=== PATIENT | male | born 1980 | race Caucasian/White ===

== ENCOUNTER 2018-08-25 05:06 | Inpatient (IN) | payer BC, OTHER ==
[2018-08-25] MEDS ORDERED: Ondansetron 4 MG/2 ML SDV IVPUSH ONE (05:55)
[2018-08-25] MEDS ORDERED: HYDROmorphone 0.5 MG/0.5 ML Syringe IVPUSH ONE (05:55)
[2018-08-25] MEDS ORDERED: Sodium Chloride 0.9% 1,000 ML IV SCH (06:00)
--- NOTE | 2018-08-25 06:01 | EDM.PDOC ---
<Bhupinder Vigil - Last Filed: 08/25/18 06:01> ED HPI GENERAL MEDICAL PROBLEM - General Chief Complaint: Gastrointestinal Problem Stated Complaint: VOMITING Time Seen by Provider: 08/25/18 05:50 Source of Information: Reports: Patient History Limitations: Reports: No Limitations - History of Present Illness INITIAL COMMENTS - FREE TEXT/NARRATIVE: 38-year-old male, usually healthy, was fine yesterday until after he ate supper. About 8 PM he developed nausea and vomited his supper. Since that time he has had significant lower abdominal pain and vomiting every 30 minutes. The last several hours it's been "dry heaves". His pain is cramping and significant , 9 out of 10. No radiation to the back. He has no history of abdominal surgeries. No medications. Onset: Sudden Duration: Hour(s): (10 hours) Location: Reports: Abdomen abd pain Pain Score (Numeric/FACES): 9 - Related Data Allergies Allergy/AdvReac Type Severity Reaction Status Date / Time acetaminophen Allergy Rash Verified 08/25/18 05:34 Home Meds: Home Meds NK [No Known Home Meds] 08/25/18 [History] Past Medical History - Past Health History Medical/Surgical History: Denies Medical/Surgical History Social & Family History - Family History Family Medical History: Noncontributory - Tobacco Use Smoking Status *Q: Never Smoker Second Hand Smoke Exposure: No - Caffeine Use Caffeine Use: Reports: Soda - Recreational Drug Use Recreational Drug Use: No ED ROS GENERAL - Review of Systems Review Of Systems: See Below Constitutional: Reports: Chills, Malaise. Denies: Fever HEENT: Reports: No Symptoms Respiratory: Denies: Shortness of Breath, Cough Cardiovascular: Denies: Chest Pain GI/Abdominal: Reports: Abdominal Pain, Nausea, Vomiting. Denies: Constipation, Diarrhea : Reports: No Symptoms Skin: Reports: Pallor, Diaphoresis Neurological: Denies: Headache Psychiatric: Reports: No Symptoms ED EXAM, GI/ABD - Physical Exam Exam: See Below Exam Limited By: No Limitations General Appearance: Alert, Mild Distress, Other (Appears very uncomfortable) Eyes: Bilateral: Normal Appearance Respiratory/Chest: No Respiratory Distress, Lungs Clear Cardiovascular: Regular Rate, Rhythm GI/Abdominal Exam: Abnormal Bowel Sounds (Bowel sounds are hypoactive), Other ( Abdomen is very difficult to examine as the whole abdomen is guarded) Neurological: Alert, Oriented Psychiatric: Flat Affect Course - Vital Signs Last Recorded V/S: Last Vital Signs Temp 97.6 F 08/25/18 05:35 Pulse 72 08/25/18 05:35 Resp 16 08/25/18 05:35 BP 120/73 08/25/18 05:35 Pulse Ox 99 08/25/18 05:35 - Orders/Labs/Meds Orders: Active Orders 24 hr Category Date Time Status Iopamidol [Isovue-300 (61%)] Med 08/25/18 07:27 Active 136 ml IV . DIRECTED PRN Sodium Chloride 0.9% [Normal Saline] 1,000 ml Med 08/25/18 06:00 Active IV ASDIRECTED Sodium Chloride 0.9% [Normal Saline] 85 ml Med 08/25/18 07:30 Active IV ASDIRECTED Sodium Chloride 0.9% [Saline Flush] Med 08/25/18 07:30 Active 10 ml FLUSH ONETIME Medication Orders Sodium Chloride (Normal Saline) 1,000 mls @ 1,000 mls/hr IV ASDIRECTED [facility] Last Admin: 08/25/18 06:11 Dose: 1,000 mls/hr Sodium Chloride (Normal Saline) 85 mls @ 3.5 mls/sec IV ASDIRECTED YONI Stop: 08/25/18 09:00 Last Admin: 08/25/18 07:40 Dose: 3.5 mls/sec Iopamidol (Isovue-300 (61%)) 136 ml IV . DIRECTED PRN PRN Reason: RADIOLOGY EXAM Stop: 08/25/18 09:00 Last Admin: 08/25/18 07:40 Dose: 136 ml Sodium Chloride (Saline Flush) 10 ml FLUSH ONETIME YONI Stop: 08/25/18 09:00 Last Admin: 08/25/18 07:40 Dose: 10 ml Labs: Laboratory Tests 08/25/18 08/25/18 Range/Units 06:12 06:12 WBC 10.8 (4.5-11.0) K/uL RBC 4.90 (4.30-5.90) M/uL Hgb 14.5 (12.0-15.0) g/dL Hct 43.3 (40.0-54.0) % MCV 88 (80-98) fL MCH 30 (27-31) pg MCHC 34 (32-36) % Plt Count 204 (150-400) K/uL Neut % (Auto) 91 H (36-66) % Lymph % (Auto) 5 L (24-44) % [place] % (Auto) 4 (2-6) % Eos % (Auto) 0 L (2-4) % Baso % (Auto) 0 (0-1) % Sodium 138 L (140-148) mmol/L Potassium 4.7 (3.6-5.2) mmol/L Chloride 102 (100-108) mmol/L Carbon Dioxide 26 (21-32) mmol/L Anion Gap 14.7 H (5.0-14.0) mmol/L BUN 20 H (7-18) mg/dL Creatinine 1.1 (0.8-1.3) mg/dL Est Cr Clr Drug Dosing 106.90 mL/min Estimated GFR (MDRD) > 60 (>60) Glucose 146 H (74-106) mg/dL Calcium 9.5 (8.5-10.1) mg/dL Total Bilirubin 0.7 (0.2-1.0) mg/dL AST 25 (15-37) U/L ALT 36 (12-78) U/L Alkaline Phosphatase 83 (46-116) U/L Total Protein 7.2 (6.4-8.2) g/dL Albumin 4.1 (3.4-5.0) g/dL Globulin 3.1 (2.3-3.5) g/dL Albumin/Globulin Ratio 1.3 (1.2-2.2) Lipase 96 (73-393) U/L Meds: Medications Generic Name Dose Route Start Last Admin Trade Name Freq PRN Reason Stop Dose Admin Sodium Chloride 1,000 mls @ 1,000 mls/hr 08/25/18 06:00 08/25/18 06:11 Normal Saline IV 1,000 mls/hr ASDIRECTED YONI Administration Sodium Chloride 85 mls @ 3.5 mls/sec 08/25/18 07:30 08/25/18 07:40 Normal Saline IV 08/25/18 09:00 3.5 mls/sec ASDIRECTED YONI Administration Iopamidol 136 ml 08/25/18 07:27 08/25/18 07:40 Isovue-300 (61%) IV 08/25/18 09:00 136 ml . DIRECTED PRN Administration RADIOLOGY EXAM Sodium Chloride 10 ml 08/25/18 07:30 08/25/18 07:40 Saline Flush FLUSH 08/25/18 09:00 10 ml ONETIME YONI Administration Discontinued Medications Generic Name Dose Route Start Last Admin Trade Name Maria Dolores PRN Reason Stop Dose Admin Hydromorphone HCl 0.5 mg 08/25/18 05:55 08/25/18 06:15 Dilaudid IVPUSH 08/25/18 05:56 0.5 mg ONETIME ONE Administration Ondansetron HCl 4 mg 08/25/18 05:55 08/25/18 06:15 Zofran IVPUSH 08/25/18 05:56 4 mg ONETIME ONE Administration - Re-Assessments/Exams Free Text/Narrative Re-Assessment/Exam: 08/25/18 06:00 Patient will be given 1 L of normal saline, 0.5 mg of Dilaudid and 4 mg of IV Zofran. CBC CMP and lipase obtained. Hopefully help calm down somewhat after the meds and can be reexamined more accurately. Departure - Departure Disposition: Admitted As Inpatient 67 Clinical Impression: Appendicitis, acute Qualifiers: Acute appendicitis type: with localized peritonitis Appendicitis gangrene presence: without gangrene Appendicitis perforation presence: without perforation Appendicitis abscess presence: without abscess Qualified Code(s): K35.30 - Acute appendicitis with localized peritonitis, without perforation or gangrene - Discharge Information Referrals: PCP,None [Primary Care Provider] - Forms: ED Department Discharge <MahadrWilton - Last Filed: 08/25/18 08:12> Course - Re-Assessments/Exams Free Text/Narrative Re-Assessment/Exam: 08/25/18 07:21 Took over care from Dr. Vigil at 7 AM, reexamination patient has nausea and vomiting appears to be under control he still complaining of belly pain predominately in lower aspect pelvis region on exam it is soft but he is tender in the right lower quadrant, elected to proceed with CAT scan of the abdomen Departure - Departure Time of Disposition: 08:11 Condition: Fair - Assessment/Plan Plan: Assessment Acuity = acute Site and laterality = acute appendicitis Etiology = unknown etiology Manifestations = nausea vomiting abdominal pain Location of injury = Home Lab values = CBC CMP, lipase all within normal limits CT scan describes a dilated appendix consistent with acute appendicitis per radiology Plan Discussed case with Dr. Jni at 8:05 kindly agreed to examine the patient in the emergency department and admit for further surgical intervention This note was dictated using [employer] voice recognition software please call with any questions on syntax or grammar.
[2018-08-25] MEDS ORDERED: Iopamidol 612 MG/ML 150 ML Bottle IV PRN (07:27)
[2018-08-25] MEDS ORDERED: Sodium Chloride 0.9% 10 ML Syringe FLUSH SCH (07:30)
--- NOTE | 2018-08-25 08:03 | CRLCT ---
INDICATION: Right lower quadrant abdominal pain. TECHNIQUE: 3 mm axial imaging has been performed through the abdomen and pelvis after nonionic IV contrast. Sagittal and coronal reconstructions have been obtained. Findings: Lung bases are free of infiltrate. Some minimal atelectasis is noted. The liver, spleen, pancreas, bilateral adrenal glands, bilateral kidneys are within normal limits. The retroperitoneum demonstrates the lymphadenopathy. Iliac claudine chain and groin is unremarkable. There is no significant free fluid. Urinary bladder is fluid-filled. Abnormal fluid filled distention of the appendix is identified. Maximum diameter is 14-15 mm. There is mild stranding of the fat in the periappendiceal region. No fluid is seen. No localized abscess or free air is identified. IMPRESSION: Pattern of findings are consistent with acute appendicitis. There is significant distention of the appendix at 14-15 mm. Some mild stranding of the periappendiceal fat noted. No significant fluid noted. Remaining abdominal organ survey is within normal limits. Dictated by Ignacio Valle MD @ 08/25/2018 8:01:54 AM Please note that all CT scans at this facility use dose modulation, iterative reconstruction, and/or weight-based dosing when appropriate to reduce radiation dose to as low as reasonably achievable. Dictated by: Ignacio Valle MD @ 08/25/2018 08:02:00 (Electronically Signed)
[2018-08-25] MEDS ORDERED: HYDROmorphone/Normal Saline 15 MG/30 ML PCA IV PRN (08:42)
[2018-08-25] MEDS ORDERED: Naloxone 0.4 MG/ML SDV IV PRN (08:42)
[2018-08-25] MEDS ORDERED: Bupivacaine 0.5%/EPINEPHrine 1:200,000 50 ML MDV ONE (08:48)
[2018-08-25] MEDS ORDERED: Midazolam 1 MG/ML 2 ML SDV ONE (08:55)
[2018-08-25] MEDS ORDERED: Ondansetron 4 MG/2 ML SDV ONE (08:55)
[2018-08-25] MEDS ORDERED: Glycopyrrolate 0.2 MG/ML 5 ML MDV ONE (08:55)
[2018-08-25] MEDS ORDERED: Dexamethasone 4 MG/ML SDV ONE (08:55)
[2018-08-25] MEDS ORDERED: fentaNYL 250 MCG/5 ML SDV ONE (08:55)
[2018-08-25] MEDS ORDERED: Rocuronium 50 MG/5 ML Vial ONE (08:55)
[2018-08-25] MEDS ORDERED: Neostigmine Methylsulfate 1 MG/ML 5 ML Syringe ONE (08:55)
[2018-08-25] MEDS ORDERED: Propofol 200 MG/20 ML SDV ONE (08:55)
[2018-08-25] MEDS ORDERED: Ropivacaine 45 ML, Dexamethasone 8 MG, EPINEPHrine 0.4 MG, Sodium Chloride 0.9% 32.6 ML NERVRT SCH ×4 (09:00)
[2018-08-25] MEDS ORDERED: Ampicillin/Sulbactam Na 3 GM in Sodium Chloride 0.9% 100 ML IV ONE (09:00)
[2018-08-25] MEDS ORDERED: Aztreonam/Dextrose-Water 1 GM in Premix Bag 1 BAG IV ONE (09:15)
[2018-08-25] MEDS ORDERED: Lactated Ringers 1,000 ML ONE (09:23)
[2018-08-25] MEDS ORDERED: Meropenem 500 MG SDV ONE (09:47)
[2018-08-25] MEDS ORDERED: Ondansetron 4 MG/2 ML SDV IVPUSH PRN (11:12)
[2018-08-25] MEDS ORDERED: hydrOXYzine HCl 100 MG/2 ML SDV IM PRN (11:13)
[2018-08-25] MEDS ORDERED: hydrOXYzine HCl 25 MG Tab PO PRN (11:13)
[2018-08-25] MEDS: Dextrose 5%-Lactated Ringers 1,000 ML IV SCH ×2 (12:27→19:33)
[2018-08-25] MEDS: Pantoprazole 40 MG Vial IV SCH (12:42)
[2018-08-25] MEDS: Ampicillin/Sulbactam Na 3 GM in Sodium Chloride 0.9% 100 ML IV SCH ×2 (14:59→21:04)
[2018-08-25] MEDS: HYDROmorphone 1 MG/ML Syringe IV PRN ×2 (14:59→23:23)
[2018-08-25] MEDS: Aztreonam/Dextrose-Water 1 GM in Premix Bag 1 BAG IV SCH (17:31)
[2018-08-26] MEDS: Aztreonam/Dextrose-Water 1 GM in Premix Bag 1 BAG IV SCH ×2 (01:30→08:47)
[2018-08-26] MEDS: Ampicillin/Sulbactam Na 3 GM in Sodium Chloride 0.9% 100 ML IV SCH ×2 (04:00→10:34)
[2018-08-26] MEDS: HYDROmorphone 1 MG/ML Syringe IV PRN (09:15)
[2018-08-26] MEDS: Pantoprazole 40 MG Vial IV SCH (14:43)
[2018-08-26] MEDS ORDERED: HYDROmorphone 2 MG Tab PO PRN (14:47)
--- NOTE | 2018-08-28 08:41 | DISCH ---
FINAL DIAGNOSIS: Perforated necrotic appendix with necrosis extending onto the cecal base and associated pericolonic abscess. OPERATIVE PROCEDURE: This was done on 08/25/2018, diagnostic laparoscopy with: 1. Partial cecectomy with removal of overlying appendix. 2. Drainage of pericolonic abscess. SUMMARY: This is a 38-year-old presenting with a picture of acute appendicitis, both clinically and radiologically. At the time of diagnostic laparoscopy, he was noted to have an acute appendicitis with necrosis at the base of the appendix with this extending onto the adjacent cecum. Therefore, a partial cecectomy was performed, along with removal of the overlying appendix. The patient had a purulent pericolonic abscess extending somewhat up along the pericolic gutter from the site of the junction of the appendix and the cecum, and this had multiple organisms on Gram stain as expected. This was all evacuated well and the abdomen irrigated with meropenem. The drainage at this point is serous. Plan will be to discharge home today. He has not required much in the way of pain medication overnight. He will go home with Augmentin 875 mg p.o. b.i.d. x7 days; Dilaudid 4 mg q.4 hours p.r.n. pain #40, 2 mg tablets; and milk of magnesia p.r.n. for constipation. Followup will be with Briana Novak at [facility] on 09/03/2018.
--- NOTE | 2018-08-30 21:52 | HP ---
HISTORY OF PRESENT ILLNESS: This is a 38-year-old male with roughly 18-hour history of abdominal pain in the mid abdomen and is now primarily in the right lower quadrant. Clinical examination by the emergency room staff consistent with acute appendicitis and a CT scan did confirm an appendicitis. The patient has had no previous abdominal surgeries and no significant medical problems otherwise. PHYSICAL EXAMINATION: GENERAL: On examination, the patient is alert. VITAL SIGNS: Stable. ABDOMEN: He is quite tender in the right lower quadrant consistent with the appendicitis. LABORATORY DATA: Review of the CT scan likewise was consistent with appendicitis. Labs show white count of 10,800, hemoglobin of 14. Chemistries are unremarkable. IMPRESSION: Acute appendicitis. PLAN: To proceed with a diagnostic laparoscopy, possible laparotomy with appendectomy, with possible need for more extensive procedure depending on operative findings as well as potential risks including bleeding, infection, leaks from GI tract closures, as well as possibility of cardiopulmonary, septic, or hemorrhagic complications leading to were discussed, and the patient wishes to proceed. The patient will be receiving IV Unasyn and Azactam preoperatively and will proceed to the operating room. Arley Jin MD /[id number]
--- NOTE | 2018-08-31 14:57 | OR ---
DATE OF PROCEDURE: 08/25/2018 SURGEON: Arley Jin MD PREOPERATIVE DIAGNOSIS: Acute appendicitis. POSTOPERATIVE DIAGNOSES: 1. Perforated necrotic appendicitis with necrosis extending onto base of cecum. 2. Pericolonic abscess. OPERATIVE PROCEDURES: Diagnostic laparoscopy with: 1. Partial cecectomy with removal of overlying attached appendix (85826). 2. Drainage of pericolonic abscess ([id number]). ANESTHESIA: General. INDICATION FOR PROCEDURE: Please see emergency room note dictated earlier. DETAILS OF PROCEDURE: The patient was taken to the operating room, and after general endotracheal anesthesia was induced, bilateral transversus abdominis plane blocks were placed. Following this, the Young catheter was inserted, and the abdomen had been prepped and draped. A camera port trocar was placed 3 fingerbreadths superior and 3 fingerbreadths to left of the umbilicus and carried through the abdominal wall under direct vision, and peritoneal cavity was then inflated to 15 mmHg pressure with CO2. Laparoscope was reinserted. No underlying trocar insertion site injuries were seen. Following this, 12 mm trocars were placed in the right upper quadrant, as well as left lower quadrant, and the lower right abdomen was examined. As one mobilized up the appendix, an abscess was noted. This began near the base of the appendix at the junction of the cecum, then ran up along the pericolonic area and in the pericolic gutter. As one examined the appendix, it became evident that this necrosis of appendicitis had extended downward onto the cecum itself, and this would require more of than an appendectomy, i.e. partial cecectomy, to provide a satisfactory staple line. The mesoappendix was then divided with Harmonic scalpel. At that point, some fatty attachments to the base of the cecum were freed up, and this was then mobilized upward. The base of cecum was then excised with care taken to avoid impinging on to cecal valve. This was done with 2 firings of the DAYNA purple loads. The specimen was then placed into a specimen bag and delivered through the left lower quadrant trocar site. The abscess fluid had been evacuated at that point and was sent for culture. At this point, no further problems noted. To facilitate hemostasis and make the cecal closure somewhat more secure, fibrin sealant was placed over that area and through a 5 mm trocar placed in the right flank. Sarath-Hoffmann drain was then placed from there, across the area of the cecectomy, and from there into the pelvis and sutured to skin with a 4-0 Vicryl stitch. The abdomen was irrigated with meropenem-containing saline solution at this point. With no further problems noted, trocars were sequentially removed and the fascia closed at each of the trocar sites with 0 Vicryl stitch and the skin with 4-0 Vicryl skin stitch. Dressing was applied. The patient was taken to the recovery room in satisfactory condition. There were no evident complications. Arley Jin MD /[id number]
== END 2018-08-26 17:28 | disposition home or self-care (01) | DRG 340 ==
LOC: JP.ED 05:06 → JP.SDS 08:19 → JP.MS 10:00
PROVIDERS: ADMIT Surgery; ATTEND Surgery
PROC: 0DTJ4ZZ Resection of Appendix, Percutaneous Endoscopic Approach (ICD-10-PCS; principal; 2018-08-25)
PROC: 0DBH4ZX Excision of Cecum, Percutaneous Endoscopic Approach, Diagnostic (ICD-10-PCS; 2018-08-25)
PROC: 0D9W4ZZ Drainage of Peritoneum, Percutaneous Endoscopic Approach (ICD-10-PCS; 2018-08-25)
DX: K35.33 Acute appendicitis with perforation, localized peritonitis, and gangrene, with abscess (principal); Z88.6 Allergy status to analgesic agent
CPT/HCPCS: 36415; 74177; 80053; 81001; 83690; 85025; 87070; 87075; 87077; 87186; 87205; 88304; 94762; 96361; 96374; 96375; 99284; 99285-25; A9270-GY; C9113; J0171; J0295; J1100; J1170; J2185; J2250; J2405; J2704; J2710; J2795; J3010; J3490; J7030; J7042; J7050; J7120

== ENCOUNTER 2018-09-14 08:22 | Inpatient (IN) | payer OTHER ==
--- NOTE | 2018-09-14 09:28 | EDM.PDOC ---
ED HPI GENERAL MEDICAL PROBLEM - General Chief Complaint: Abdominal Pain Stated Complaint: POSSIBLE SURGERY COMPLICATIONS Time Seen by Provider: 09/14/18 08:40 Source of Information: Reports: Patient History Limitations: Reports: No Limitations - History of Present Illness INITIAL COMMENTS - FREE TEXT/NARRATIVE: pt arrived with severe pain in the rt upper abdoman. He has not had fevers. He has had like hot flashhes. He is eating and he has had bms. He had a ruptured appendix with surgery on Aug 25. He states in the last 2-3 days he has had increased pain in the rt mid abdoman. Onset: Gradual Duration: Day(s): Location: Reports: Abdomen Associated Symptoms: Reports: No Other Symptoms Right Upper Abdomen Pain Score (Numeric/FACES): 6 - Related Data Allergies Allergy/AdvReac Type Severity Reaction Status Date / Time acetaminophen Allergy Rash Verified 08/25/18 05:34 amoxicillin Allergy Hives Verified 08/26/18 16:41 Home Meds: Home Meds Magnesium Hydroxide [Milk of Magnesia] 30 ml PO DAILY PRN #30 ml 08/26/18 [Rx] Past Medical History - Past Health History Medical/Surgical History: Denies Medical/Surgical History - Past Surgical History GI Surgical History: Reports: Appendectomy Social & Family History - Family History Family Medical History: Noncontributory - Tobacco Use Smoking Status *Q: Never Smoker - Caffeine Use Caffeine Use: Reports: Coffee, Soda, Tea - Recreational Drug Use Recreational Drug Use: No ED ROS GENERAL - Review of Systems Review Of Systems: See Below Constitutional: Reports: No Symptoms HEENT: Reports: No Symptoms Respiratory: Reports: Other (pain with deep breathing. ) Cardiovascular: Reports: No Symptoms Endocrine: Reports: No Symptoms GI/Abdominal: Reports: Abdominal Pain, Other (pt is firm and very tender in the rt upper and rt mid abdoman. ) : Reports: No Symptoms Musculoskeletal: Reports: No Symptoms Skin: Reports: No Symptoms ED EXAM, GI/ABD - Physical Exam Exam: See Below Text/Narrative:: Pt arrived with acute pain in the rtupper and rt mid abdoman. He does have pain when he takes a deep breath. Exam Limited By: No Limitations General Appearance: Alert, Anxious, Moderate Distress Ears: Normal TMs Nose: Normal Inspection Throat/Mouth: Normal Inspection Head: Atraumatic Neck: Normal Inspection Respiratory/Chest: Other (pt is splinting when he does take a deep breath. ) Cardiovascular: Regular Rate, Rhythm GI/Abdominal Exam: Soft, Non-Tender (Male) Exam: Deferred Rectal (Males) Exam: Deferred Back Exam: Normal Inspection Extremities: Normal Inspection Neurological: Alert, Oriented, Normal Cognition Course - Vital Signs Last Recorded V/S: Last Vital Signs Temp 36.3 C 09/14/18 08:37 Pulse 86 09/14/18 08:37 Resp 18 09/14/18 08:37 BP 119/80 09/14/18 08:37 Pulse Ox 96 09/14/18 08:37 - Orders/Labs/Meds Orders: Active Orders 24 hr Category Date Time Status Abdomen Pelvis w Cont [CT] Stat Exams 09/14/18 09:33 Taken UA W/MICROSCOPIC [URIN] Urgent Lab 09/14/18 08:57 Ordered Aztreonam [Azactam] 1 gm Med 09/14/18 10:46 Ordered Sodium Chloride 0.9% [Normal Saline] 50 ml IV ONETIME Iopamidol [Isovue-300 (61%)] Med 09/14/18 09:38 Active 129 ml IV . DIRECTED PRN Meropenem [Merrem] 500 mg Med 09/14/18 10:46 Ordered Sodium Chloride 0.9% [Normal Saline] 50 ml IV ONETIME Sodium Chloride 0.9% [Normal Saline] 1,000 ml Med 09/14/18 09:30 Active IV ASDIRECTED Sodium Chloride 0.9% [Normal Saline] 83 ml Med 09/14/18 09:45 Active IV ASDIRECTED Medication Orders Sodium Chloride (Normal Saline) 1,000 mls @ 999 mls/hr IV ASDIRECTED [facility] Last Admin: 09/14/18 09:43 Dose: 999 mls/hr Sodium Chloride (Normal Saline) 83 mls @ 3.5 mls/sec IV ASDIRECTED YONI Last Admin: 09/14/18 09:52 Dose: 3.5 mls/sec Meropenem 500 mg/ Sodium (Chloride) 50 mls @ 100 mls/hr IV ONETIME ONE Stop: 09/14/18 11:15 Aztreonam 1 gm/ Sodium (Chloride) 50 mls @ 100 mls/hr IV ONETIME ONE Stop: 09/14/18 11:15 Iopamidol (Isovue-300 (61%)) 129 ml IV . DIRECTED PRN PRN Reason: RADIOLOGY EXAM Stop: 09/15/18 09:39 Last Admin: 09/14/18 09:52 Dose: 129 ml Labs: Laboratory Tests 09/14/18 09/14/18 09/14/18 Range/Units 09:08 09:08 09:08 WBC 11.8 H (4.5-11.0) K/uL RBC 4.21 L (4.30-5.90) M/uL Hgb 12.0 D (12.0-15.0) g/dL Hct 37.0 L (40.0-54.0) % MCV 88 (80-98) fL MCH 29 (27-31) pg MCHC 32 (32-36) % Plt Count 435 H (150-400) K/uL Neut % (Auto) 83 H (36-66) % Lymph % (Auto) 8 L (24-44) % [place] % (Auto) 8 H (2-6) % Eos % (Auto) 0 L (2-4) % Baso % (Auto) 0 (0-1) % Sodium 136 L (140-148) mmol/L Potassium 4.5 (3.6-5.2) mmol/L Chloride 96 L (100-108) mmol/L Carbon Dioxide 31 (21-32) mmol/L Anion Gap 13.5 (5.0-14.0) mmol/L BUN 13 (7-18) mg/dL Creatinine 1.1 (0.8-1.3) mg/dL Est Cr Clr Drug Dosing 106.90 mL/min Estimated GFR (MDRD) > 60 (>60) Glucose 109 H (74-106) mg/dL Calcium 9.2 (8.5-10.1) mg/dL Total Bilirubin 0.6 (0.2-1.0) mg/dL AST 26 (15-37) U/L ALT 42 (12-78) U/L Alkaline Phosphatase 99 (46-116) U/L C-Reactive Protein 16.16 H (0.0-0.3) mg/dL Total Protein 7.3 (6.4-8.2) g/dL Albumin 2.7 L (3.4-5.0) g/dL Globulin 4.6 H (2.3-3.5) g/dL Albumin/Globulin Ratio 0.6 L (1.2-2.2) Meds: Medications Generic Name Dose Route Start Last Admin Trade Name Freq PRN Reason Stop Dose Admin Sodium Chloride 1,000 mls @ 999 mls/hr 09/14/18 09:30 09/14/18 09:43 Normal Saline IV 999 mls/hr ASDIRECTED YONI Administration Sodium Chloride 83 mls @ 3.5 mls/sec 09/14/18 09:45 09/14/18 09:52 Normal Saline IV 3.5 mls/sec ASDIRECTED YONI Administration Meropenem 500 mg/ Sodium 50 mls @ 100 mls/hr 09/14/18 10:46 Chloride IV 09/14/18 11:15 ONETIME ONE Aztreonam 1 gm/ Sodium 50 mls @ 100 mls/hr 09/14/18 10:46 Chloride IV 09/14/18 11:15 ONETIME ONE Iopamidol 129 ml 09/14/18 09:38 09/14/18 09:52 Isovue-300 (61%) IV 09/15/18 09:39 129 ml . DIRECTED PRN Administration RADIOLOGY EXAM Discontinued Medications Generic Name Dose Route Start Last Admin Trade Name Freq PRN Reason Stop Dose Admin Hydromorphone HCl 0.5 mg 09/14/18 09:57 09/14/18 10:06 Dilaudid IVPUSH 09/14/18 09:58 0.5 mg ONETIME ONE Administration Hydromorphone HCl 1 mg 09/14/18 10:17 09/14/18 10:15 Dilaudid IVPUSH 09/14/18 10:18 1 mg ONETIME ONE Administration - Re-Assessments/Exams Free Text/Narrative Re-Assessment/Exam: 09/14/18 10:48 cat scan shows marked inflamation and probable abcess formation Departure - Departure Time of Disposition: 10:49 Disposition: Admitted As Inpatient 67 Condition: Fair Clinical Impression: Postoperative abscess - Discharge Information Referrals: PCP,None [Primary Care Provider] - Forms: ED Department Discharge Care Plan Goals: admit to Dr Jin. - My Orders Last 24 Hours: My Active Orders 09/14/18 08:57 UA W/MICROSCOPIC [URIN] Urgent 09/14/18 09:30 Sodium Chloride 0.9% [Normal Saline] 1,000 ml IV ASDIRECTED 09/14/18 09:33 Abdomen Pelvis w Cont [CT] Stat 09/14/18 09:38 Iopamidol [Isovue-300 (61%)] 129 ml IV . DIRECTED PRN 09/14/18 09:45 Sodium Chloride 0.9% [Normal Saline] 83 ml IV ASDIRECTED 09/14/18 10:46 Aztreonam [Azactam] 1 gm Sodium Chloride 0.9% [Normal Saline] 50 ml IV ONETIME Meropenem [Merrem] 500 mg Sodium Chloride 0.9% [Normal Saline] 50 ml IV ONETIME - Assessment/Plan Last 24 Hours: My Active Orders 09/14/18 08:57 UA W/MICROSCOPIC [URIN] Urgent 09/14/18 09:30 Sodium Chloride 0.9% [Normal Saline] 1,000 ml IV ASDIRECTED 09/14/18 09:33 Abdomen Pelvis w Cont [CT] Stat 09/14/18 09:38 Iopamidol [Isovue-300 (61%)] 129 ml IV . DIRECTED PRN 09/14/18 09:45 Sodium Chloride 0.9% [Normal Saline] 83 ml IV ASDIRECTED 09/14/18 10:46 Aztreonam [Azactam] 1 gm Sodium Chloride 0.9% [Normal Saline] 50 ml IV ONETIME Meropenem [Merrem] 500 mg Sodium Chloride 0.9% [Normal Saline] 50 ml IV ONETIME
[2018-09-14] MEDS ORDERED: Sodium Chloride 0.9% 1,000 ML IV SCH ×2 (09:30→11:00)
[2018-09-14] MEDS ORDERED: Iopamidol 612 MG/ML 150 ML Bottle IV PRN (09:38)
[2018-09-14] MEDS ORDERED: HYDROmorphone 0.5 MG/0.5 ML Syringe IVPUSH ONE (09:57)
[2018-09-14] MEDS ORDERED: HYDROmorphone 1 MG/ML Syringe IVPUSH ONE (10:17)
[2018-09-14] MEDS ORDERED: Meropenem 500 MG in Sodium Chloride 0.9% 50 ML IV ONE (10:46)
[2018-09-14] MEDS ORDERED: HYDROmorphone/Normal Saline 15 MG/30 ML PCA IV PRN (10:56)
[2018-09-14] MEDS ORDERED: Naloxone 0.4 MG/ML SDV IV PRN (10:56)
[2018-09-14] MEDS ORDERED: Ondansetron 4 MG/2 ML SDV IVPUSH PRN (10:57)
--- NOTE | 2018-09-14 11:03 | CRLCT ---
INDICATION: Recent appendectomy. Possible abscess. TECHNIQUE: A CT volumetric acquisition was performed of the abdomen and pelvis during intravenous infusion of 129 cc of Isovue-300 nonionic intravenous contrast. COMPARISON: CT abdomen and pelvis dated 08/26/2015. FINDINGS: The lung bases are clear. The patient`s liver demonstrates normal uniform enhancement. There is normal appearance of the spleen and pancreas. There is mild edema about the wall of the gallbladder but there is no evidence of gallbladder distention or dilation of the bile ducts. The kidneys and adrenal glands appear normal. Inflammatory changes and abscess formation is evident within the right subhepatic space extending anteriorly into the abdominal wall musculature. There is rim enhancement about the fluid collections. The largest collection within Watters`s space measures 5.3 cm in size and anterior to this there is a 2nd partially loculated collection which measures 3.9 cm. Inferior to this there is no evidence of abscess about the surgical clips within the base of the cecum. There is no evidence of free fluid in the cul de sac. There is a normal appearance of the small intestine. There is mild edema within the wall of the ascending colon adjacent to the abscesses. The remainder of the colon appears normal. Prostate gland and urinary bladder appear normal. IMPRESSION: Postoperative abscess formation noted within Watters`s space with extension into the right anterior abdominal wall. Dictated by Giorgi Rincon MD @ 09/14/2018 11:00:13 AM Please note that all CT scans at this facility use dose modulation, iterative reconstruction, and/or weight-based dosing when appropriate to reduce radiation dose to as low as reasonably achievable. Dictated by: Giorgi Rincon MD @ 09/14/2018 11:00:20 (Electronically Signed)
[2018-09-14] MEDS ORDERED: Aztreonam/Dextrose-Water 1 GM in Premix Bag 1 BAG IV ONE (11:15)
[2018-09-14] MEDS ORDERED: Ondansetron 4 MG/2 ML SDV ONE (12:18)
[2018-09-14] MEDS ORDERED: Propofol 200 MG/20 ML SDV ONE (12:18)
[2018-09-14] MEDS ORDERED: Dexamethasone 4 MG/ML SDV ONE (12:18)
[2018-09-14] MEDS ORDERED: Glycopyrrolate 0.2 MG/ML 5 ML MDV ONE (12:18)
[2018-09-14] MEDS ORDERED: Neostigmine Methylsulfate 1 MG/ML 5 ML Syringe ONE (12:18)
[2018-09-14] MEDS ORDERED: Succinylcholine 200 MG/10 ML MDV ONE (12:18)
[2018-09-14] MEDS ORDERED: fentaNYL 250 MCG/5 ML SDV ONE ×2 (12:18→16:01)
[2018-09-14] MEDS ORDERED: Rocuronium 50 MG/5 ML Vial ONE (12:18)
[2018-09-14] MEDS ORDERED: Meropenem 500 MG SDV ONE ×2 (13:44→15:51)
[2018-09-14] MEDS ORDERED: Lactated Ringers 1,000 ML IV SCH (14:00)
[2018-09-14] MEDS ORDERED: Ropivacaine 43 ML, Dexamethasone 8 MG, EPINEPHrine 0.4 MG, Sodium Chloride 0.9% 34.6 ML NERVRT SCH ×4 (15:30)
[2018-09-14] MEDS ORDERED: hydrOXYzine HCl 100 MG/2 ML SDV IM ONE ×2 (17:00→18:50)
[2018-09-14] MEDS ORDERED: fentaNYL 100 MCG/2 ML SDV IVPUSH ONE (17:12)
[2018-09-14] MEDS ORDERED: Dextrose 5%-Lactated Ringers 1,000 ML IV SCH (17:30)
[2018-09-14] MEDS ORDERED: Acetaminophen 500 MG Tab PO SCH (18:00)
[2018-09-14] MEDS: Pantoprazole 40 MG Vial IV SCH (18:04)
[2018-09-14] MEDS: Aztreonam/Dextrose-Water 1 GM in Premix Bag 1 BAG IV SCH (18:10)
[2018-09-14] MEDS ORDERED: Meperidine PF 100 MG/ML Syringe IM ONE (18:49)
[2018-09-14] MEDS: Meropenem 500 MG in Sodium Chloride 0.9% 50 ML IV SCH (22:31)
[2018-09-15] MEDS: Aztreonam/Dextrose-Water 1 GM in Premix Bag 1 BAG IV SCH ×3 (01:56→18:14)
[2018-09-15] MEDS: Meropenem 500 MG in Sodium Chloride 0.9% 50 ML IV SCH ×4 (05:04→22:21)
[2018-09-15] MEDS: HYDROmorphone/Normal Saline 15 MG/30 ML PCA IV SCH (06:46)
[2018-09-15] MEDS: Bisacodyl 5 MG Tab PO SCH ×2 (10:45→20:12)
[2018-09-15] MEDS: Enoxaparin 40 MG/0.4 ML Syringe SUBCUT SCH (10:45)
[2018-09-15] MEDS: Dextrose 5%-Lactated Ringers 1,000 ML IV SCH (15:46)
[2018-09-15] MEDS: Pantoprazole 40 MG Vial IV SCH (17:34)
[2018-09-15] MEDS: diphenhydrAMINE 50 MG/ML SDV IVPUSH PRN (20:12)
[2018-09-16] MEDS: Dextrose 5%-Lactated Ringers 1,000 ML IV SCH ×3 (00:05→19:30)
[2018-09-16] MEDS: diphenhydrAMINE 50 MG/ML SDV IVPUSH PRN ×2 (00:06→20:44)
[2018-09-16] MEDS: Aztreonam/Dextrose-Water 1 GM in Premix Bag 1 BAG IV SCH ×3 (01:56→17:45)
[2018-09-16] MEDS: HYDROmorphone/Normal Saline 15 MG/30 ML PCA IV SCH ×2 (02:01→16:23)
[2018-09-16] MEDS: Meropenem 500 MG in Sodium Chloride 0.9% 50 ML IV SCH ×4 (04:53→23:06)
[2018-09-16] MEDS: Bisacodyl 5 MG Tab PO SCH ×2 (09:12→20:41)
[2018-09-16] MEDS: Enoxaparin 40 MG/0.4 ML Syringe SUBCUT SCH (09:12)
--- NOTE | 2018-09-16 13:06 | PN ---
DATE OF SERVICE: 09/16/2018 The patient has been afebrile with stable vital signs. Nothing has grown out of the cultures thus far. PAWAN drain is becoming more serous and oral intake was moderate. He has not moved any bowels up yet. We will continue the bowel stimulation and then plan to proceed with a delayed primary closure of the abdominal incision tomorrow. We will continue the present antibiotics pending C and S results. Arley Jin MD /[id number]
[2018-09-16] MEDS: Pantoprazole 40 MG Vial IV SCH (17:45)
[2018-09-17] MEDS: Aztreonam/Dextrose-Water 1 GM in Premix Bag 1 BAG IV SCH ×3 (02:48→17:31)
[2018-09-17] MEDS: Meropenem 500 MG in Sodium Chloride 0.9% 50 ML IV SCH ×4 (04:36→22:28)
[2018-09-17] MEDS: Dextrose 5%-Lactated Ringers 1,000 ML IV SCH ×3 (04:36→22:28)
[2018-09-17] MEDS ORDERED: Meropenem 500 MG SDV ONE (06:40)
[2018-09-17] MEDS ORDERED: Lidocaine 1% with EPINEPHrine 1:100,000 50 ML MDV ONE (06:41)
[2018-09-17] MEDS ORDERED: Bupivacaine 0.5% 50 ML MDV ONE (06:41)
[2018-09-17] MEDS ORDERED: Propofol 200 MG/20 ML SDV ONE ×2 (07:15→07:40)
[2018-09-17] MEDS ORDERED: Ropivacaine 43 ML, Dexamethasone 8 MG, EPINEPHrine 0.4 MG, Sodium Chloride 0.9% 34.6 ML NERVRT SCH ×4 (07:15)
[2018-09-17] MEDS ORDERED: fentaNYL 100 MCG/2 ML SDV ONE ×2 (07:15→07:26)
[2018-09-17] MEDS: Enoxaparin 40 MG/0.4 ML Syringe SUBCUT SCH (09:10)
[2018-09-17] MEDS: Bisacodyl 5 MG Tab PO SCH ×2 (09:10→20:15)
--- NOTE | 2018-09-17 10:26 | PN ---
DATE OF SERVICE: 09/15/2018 The patient had a temperature up to 101.5 last evening. He now has defervesced in the 97 range, after draining of the 2 abscesses yesterday. Cultures on this are not growing anything out. I will continue present antibiotic regimen, pending further C and S reports. Otherwise, he is intermittently somewhat hypoxic with O2 sats in the 80s and will need to work vigorously with pulmonary toilet. His stomach appeared to be emptying well yesterday. We will give him a full liquid diet today, back down on the IV rate, and begin some bowel stimulation. He has not been feeling good and has not been ovelry mobile, so we will add some Lovenox, in addition to the SCDs as DVT prophylaxis. Arley Jin MD /[id number]
--- NOTE | 2018-09-17 10:43 | PN ---
DATE OF SERVICE: 09/17/2018 SUBJECTIVE: Emil is n.p.o. for delayed primary closure this morning. Cultures came back and showed Escherichia coli and Viridans Streptococcus. He currently is on meropenem and Azactam, which will cover both of those organisms. Pain has been controlled. Vital signs have been stable. REVIEW OF SYSTEMS: Remainder of review of systems negative for any pertinent positives and negatives. OBJECTIVE: GENERAL: Emil Weinberg is a 38-year-old male, alert, orientated. VITAL SIGNS: TPR is 97.9, 91, 16, blood pressure 127/93. HEENT: Negative. NECK: Supple. HEART: Regular rate and rhythm. LUNGS: Clear. ABDOMEN: Dressings dry and intact. Abdominal binder is on. EXTREMITIES: Without peripheral edema. ASSESSMENT: Exploratory laparotomy, drainage of intraabdominal abscess. Date of surgery: 09/14/2018. Surgeon: Arley Jin MD. PLAN: 1. Orders to be written after delayed primary closure and Young will be removed during delayed primary closure. 2. We will evaluate p.r.n. or in the a.m. Briana Novak PA-C /[id number]
[2018-09-17] MEDS: Ondansetron 4 MG/2 ML SDV IVPUSH PRN ×2 (10:54→13:59)
[2018-09-17] MEDS: HYDROmorphone/Normal Saline 15 MG/30 ML PCA IV SCH (11:52)
[2018-09-17] MEDS ORDERED: Meperidine PF 100 MG/ML Syringe IM ONE (13:32)
[2018-09-17] MEDS ORDERED: hydrOXYzine HCl 100 MG/2 ML SDV IM ONE (13:32)
[2018-09-17] MEDS: Pantoprazole 40 MG Tab.CR PO SCH (16:04)
[2018-09-18] MEDS: Aztreonam/Dextrose-Water 1 GM in Premix Bag 1 BAG IV SCH ×4 (02:01→17:25)
[2018-09-18] MEDS: Meropenem 500 MG in Sodium Chloride 0.9% 50 ML IV SCH ×4 (04:44→22:11)
[2018-09-18] MEDS ORDERED: Magnesium Hydroxide 400 MG/5 ML Susp 30 ML Cup PO PRN (07:58)
[2018-09-18] MEDS: Bisacodyl 5 MG Tab PO SCH ×2 (09:24→22:00)
[2018-09-18] MEDS: Enoxaparin 40 MG/0.4 ML Syringe SUBCUT SCH (09:25)
[2018-09-18] MEDS: Erythromycin Ethylsuccinate Susp 200 MG/5 ML 100 ML Bottle PO SCH ×3 (09:26→22:00)
[2018-09-18] MEDS: Ondansetron 4 MG/2 ML SDV IVPUSH PRN ×2 (10:47→15:52)
[2018-09-18] MEDS: HYDROmorphone/Normal Saline 15 MG/30 ML PCA IV SCH (12:54)
[2018-09-18] MEDS: Pantoprazole 40 MG Tab.CR PO SCH (15:37)
[2018-09-18] MEDS: diphenhydrAMINE 50 MG/ML SDV IVPUSH PRN (22:08)
[2018-09-19] MEDS: Dextrose 5%-Lactated Ringers 1,000 ML IV SCH (03:05)
[2018-09-19] MEDS: Meropenem 500 MG in Sodium Chloride 0.9% 50 ML IV SCH ×2 (05:34→12:16)
[2018-09-19] MEDS: Erythromycin Ethylsuccinate Susp 200 MG/5 ML 100 ML Bottle PO SCH (07:35)
[2018-09-19] MEDS: Bisacodyl 5 MG Tab PO SCH (08:35)
--- NOTE | 2018-09-19 08:54 | PN ---
DATE OF SERVICE: 09/19/2018 SUBJECTIVE: Emil has not had a bowel movement yet, but states he is passing flatus. PAWAN drains have put out 5 and 10 mL respectively over the past 24 hours. His pain is controlled. He has been up ambulating. Oral intake 1650. Urine output not recorded and he has had 650 mL of emesis. The emesis occurred after taking the erythromycin. REVIEW OF SYSTEMS: Remainder of review of systems negative for any pertinent positives and negatives. OBJECTIVE: GENERAL: Emil Weinberg is a 38-year-old male. He is alert and orientated. Color pale. VITAL SIGNS: TPR 97.7, 79, 16. Blood pressure 131/91. HEENT: Negative. NECK: Supple. HEART: Regular rate and rhythm. LUNGS: Clear. ABDOMEN: Dressings dry and intact. Abdominal PAWAN drains x2 intact, draining a light pink serosanguineous drainage and abdominal binder is on. EXTREMITIES: Without peripheral edema. ASSESSMENT: 1. Delayed primary closure for open abdominal incision 09/17/2018, Arley Jin MD. 2. Exploratory laparotomy with right intraabdominal abscess extending into abdominal wall and debridement of abdominal wall. Date of surgery, 09/14/2018. Surgeon, Arley Jin MD. PLAN: 1. Discontinue erythromycin. Continue same medications. 2. We will evaluate p.r.n. or in a.m. Briana Novak PA-C /[id number]
[2018-09-19] MEDS ORDERED: HYDROmorphone 2 MG Tab PO PRN (08:56)
[2018-09-19] MEDS: Enoxaparin 40 MG/0.4 ML Syringe SUBCUT SCH (10:29)
[2018-09-19] MEDS: Aztreonam/Dextrose-Water 1 GM in Premix Bag 1 BAG IV SCH (10:57)
--- NOTE | 2018-09-19 14:00 | OR ---
DATE OF PROCEDURE: 09/14/2018 PREOPERATIVE DIAGNOSIS: Intraabdominal abscess. POSTOPERATIVE DIAGNOSES: 1. Right pericolonic intraabdominal abscess extending into the abdominal wall. 2. Right subphrenic abscess extending into Morison's pouch (between posterior aspect of right lobe of liver and kidney). OPERATIVE PROCEDURES: Exploratory laparotomy with, 1. Drainage of right pericolonic intraabdominal abscess (44967). 2. Debridement of abdominal wall extension of abscess (06046). 3. Drainage of right subphrenic abscess extending into Morison's pouch ([id number]). ANESTHESIA: General. UNIT CONTROLLER: RACHEL Newberry. INDICATIONS FOR PROCEDURE: The patient is 20 days status post a complicated laparoscopic appendectomy. This required a portion of the colon to be resected. He had been doing well up until recent days, where he now presented with increasing abdominal discomfort and general malaise. He presented to the emergency room, where a CT scan showed an abscess extending in the right pericolonic area with extension into the abdominal wall. The patient appeared to have a second area of likely abscess formation in Morison's pouch extending somewhat upward into the left subphrenic area. It was not clear whether there was additional pathology associated with the present situation versus this being a late abscess as a result of the appendicitis. With a 20-day interval, there is a distinct possibility that we are dealing with some additional pathology such as complicated peptic ulcer disease and such. Given this, we will proceed with an open laparotomy and drainage of the abscesses, and additional procedures as indicated based on operative findings. Potential risks of the procedure including bleeding, infection, and injury to underlying viscera were all reviewed with the patient, and he wishes to proceed. DETAILS OF PROCEDURE: The patient was taken to the operating room and after general endotracheal anesthesia was induced, a Young catheter was inserted, and the abdomen was prepped and draped. Bilateral subcostal transversus abdominis plane blocks were then placed using ultrasound guidance. An upper midline incision was then made and carried down through the skin and subcutaneous tissue. Upon entering the peritoneal cavity, in the midline, there was no direct adherence to the viscera to the abdominal wall at that level. As one dissected laterally, a purulent collection was encountered. As one peeled the right colon away from the abdominal wall, the creamy purulent material was then evacuated. Cultures were obtained. As this was further drained, it did have an extension into the trocar site of the abdominal wall, which was in the right upper quadrant. There were some friable abdominal wall fascia and peritoneum that were then debrided. This tissue was essentially evacuated with suction, as it was bluntly debrided away down to viable tissue. After completion of abscess drainage, we then explored the area in the right subphrenic area. As the liver was pulled away from the diaphragm, purulent material was encountered. This, likewise, was a creamy purulent material and cultures were obtained. This subphrenic abscess then had some extension around the liver into the area of Morison's pouch, i.e. between the posterior aspect of the right lobe of liver and kidney. This material was then fully evacuated as well. At this point, the abdomen was irrigated with antibiotic saline solution containing both meropenem and Zyvox. Two Sarath-Hoffmann drains were then placed. One of these drains was placed through the trocar site, which was involved in debridement, to maintain adequate drainage of that area over the next few days, and this drain was then placed into the pericolonic area as well. Then, the second drain was then placed into the subphrenic region extending around into Morison's pouch as well. At this point, no further problems were noted. The area of the gallbladder, duodenum and such were inspected, and no additional specific pathology was seen. There did not appear to be any colonic injury or infection primarily as well. At that point, the midline fascia was approximated with #2 Vicryl stitch. The skin and subcutaneous tissue were obviously at high risk for wound infection if primary closure was undertaken and were therefore packed open for a planned delayed primary closure in roughly 48 to 72 hours. The patient was taken to the recovery room in a satisfactory condition. Arley Jin MD /[id number]
--- NOTE | 2018-09-19 14:42 | PN ---
DATE OF SERVICE: 09/18/2018 The patient has been afebrile with stable vital signs. He is still not passing any significant flatus or any bowel movements. We will add some erythromycin to the regimen today along with some milk of magnesia and hopefully able to get the bowels going. Arley Jin MD /[id number]
--- NOTE | 2018-09-19 22:27 | DISCH ---
ADMISSION DIAGNOSIS: Severe right upper quadrant abdominal pain, status post ruptured appendix with appendectomy on 08/25/2018. DISCHARGE DIAGNOSES: 1. Exploratory laparotomy with drainage of right pericolonic intraabdominal abscess, debridement of abdominal wall extension of abscess, drainage of right subphrenic abscess extending into Morison's pouch for right pericolonic intraabdominal abscess extending into the abdominal wall and right subphrenic abscess extending into Morison's pouch (between posterior aspect of right lobe of the liver and kidney). 2. Delayed primary closure, 09/17/2018. HISTORY: Emil Weinberg is a 38-year-old male who is 20 days status post complicated laparoscopic appendectomy. This required a portion of the colon to be resected. He had been doing well until a few days ago and he presented to [facility] Emergency Department with increasing abdominal discomfort and general malaise. After preoperative evaluation and discussion of possible risks and possible complications, he wished to proceed with surgical procedure. HOSPITAL COURSE: Emil had his surgery on 09/14/2018. He had no operative complications. On postoperative day #1, he had a temperature max of 101.5. He was on broad-spectrum antibiotics. Culture and sensitivity reports were pending. O2 saturations in the 80s, but did increase by working with incentive spirometer. On 09/16/2018, he was afebrile. Vital signs were stable. Oral intake was moderate. He was given bowel stimulation. On 09/17/2018, he had his delayed primary closure. E. coli and viridans streptococcus came back from cultures of his wound. He will remain on meropenem and Azactam. The pain was controlled. Young catheter was discontinued. On 09/18/2018, he remained afebrile. He was started on erythromycin to help bowel stimulation. He was not passing any flatus. On 09/19/2018, erythromycin was discontinued because he had an emesis. He was starting to pass some flatus and felt like he would have a bowel movement. He did have a bowel movement later in the morning. Vital signs were normal and stable. Oral intake and output were adequate. His activity was good, and he was able to be discharged to home. PHYSICAL EXAMINATION: GENERAL: Emil Weinberg is a 38-year-old male. Height is 6 feet 2 inches, weight is 190 pounds. VITAL SIGNS: TPR is 98.3, 84, 18, blood pressure 118/79. HEENT: Negative. NECK: Supple. HEART: Regular rate and rhythm. LUNGS: Clear. ABDOMEN: Pedro intact. Abdominal binder is on. EXTREMITIES: Without peripheral edema. DISPOSITION: Discharged to home. CONDITION: Stable and improving. FOLLOWUP: Followup appointment with Briana Novak PA-C, on 09/28/2018 at 9:15 a.m. HOME MEDICATIONS: 1. Cipro 500 mg b.i.d. for 14 days. 2. Dilaudid 2 mg every 4 hours p.r.n. pain #42. DIET: After discharge, usual diet as tolerated, drink 8 to 10 glasses of water a day. ACTIVITY: No lifting over 10 pounds for 6 weeks. Driving after discharge: Do not drive for 1 week and while on pain medication. Shower/bathing: May shower. DISCHARGE INSTRUCTIONS: Notify provider if any fever, increased pain, nausea, or vomiting. Keep site clean and dry. Wear abdominal binder for 2 weeks and then as tolerated. Use incentive spirometer 10 times every hour while awake.
--- NOTE | 2018-09-20 13:44 | OR ---
DATE OF PROCEDURE: 09/17/2018 PREOPERATIVE DIAGNOSIS: Open abdominal incision. POSTOPERATIVE DIAGNOSIS: Open abdominal incision. OPERATIVE PROCEDURE: Delayed primary closure of open abdominal incision. ANESTHESIA: IV sedation plus local. INDICATION FOR PROCEDURE: The patient is 2 days status post drainage of a right pericolonic abscess and a right subphrenic abscess. At the time of the presentation, the incision was left open as it was felt to be high risk for a wound infection if the primary closure was undertaken. Given this, the plan is to proceed with a delayed primary closure at this time. Potential risks including bleeding and infection were reviewed, and the patient wishes to proceed. DETAILS OF PROCEDURE: The patient was taken to the operating room and placed in a supine position. IV sedation was administered, after which the operative dressing was taken down. The wound was inspected and found to be clean. The incision was then prepped and draped, anesthetized with 1% lidocaine mixed with Marcaine, and irrigated with meropenem-containing saline solution. The incision was then closed with 2 layers of 3-0 and 4-0 Vicryl stitch deep and quintin for the skin. Bilateral transversus abdominis plane blocks were then placed using ultrasound guidance. The patient was taken to the recovery room in a satisfactory condition. Arley Jin MD /[id number]
== END 2018-09-19 17:09 | disposition home or self-care (01) | DRG 856 ==
LOC: JP.ED 08:22 → JP.MS 10:52
PROVIDERS: ADMIT Surgery; ATTEND Surgery
PROC: 0W9G00Z Drainage of Peritoneal Cavity with Drainage Device, Open Approach (ICD-10-PCS; principal; 2018-09-14)
PROC: 0W9G00Z Drainage of Peritoneal Cavity with Drainage Device, Open Approach (ICD-10-PCS; 2018-09-14)
PROC: 0JD80ZZ Extraction of Abdomen Subcutaneous Tissue and Fascia, Open Approach (ICD-10-PCS; 2018-09-14)
PROC: 0WQF0ZZ Repair Abdominal Wall, Open Approach (ICD-10-PCS; 2018-09-17)
DX: K68.11 Postprocedural retroperitoneal abscess (principal); K65.1 Peritoneal abscess; K75.0 Abscess of liver; L02.211 Cutaneous abscess of abdominal wall; T81.43XA Infection following a procedure, organ and space surgical site, initial encounter; B96.29 Other Escherichia coli [E. coli] as the cause of diseases classified elsewhere; B95.4 Other streptococcus as the cause of diseases classified elsewhere; Z48.1 Encounter for planned postprocedural wound closure; R09.02 Hypoxemia; Z79.2 Long term (current) use of antibiotics; Z88.1 Allergy status to other antibiotic agents; Z88.8 Allergy status to other drugs, medicaments and biological substances
CPT/HCPCS: 36415; 74177; 80053; 81001; 83735; 84100; 85025; 85027; 86140; 87070; 87075; 87077; 87186; 87205; 94762; 96374; 96375; 96376; 99285; 99285-25; A9270-GY; C9113; J0171; J0330; J1100; J1170; J1200; J1650; J2175; J2185; J2405; J2704; J2710; J2795; J3010; J3410; J3490; J7030; J7042; J7050; J7120

== ENCOUNTER 2018-10-05 08:18 | Day surgery (SDC) | payer MEDICAID ==
[2018-10-05] MEDS ORDERED: Midazolam 1 MG/ML 2 ML SDV ONE (08:20)
[2018-10-05] MEDS ORDERED: fentaNYL 100 MCG/2 ML SDV ONE (08:20)
[2018-10-05] MEDS ORDERED: Propofol 200 MG/20 ML SDV ONE ×2 (08:20→11:28)
[2018-10-05] MEDS ORDERED: Dextrose 5%-Lactated Ringers 1,000 ML IV SCH (09:00)
[2018-10-05] MEDS ORDERED: Meropenem 500 MG SDV ONE (09:06)
[2018-10-05] MEDS ORDERED: Meropenem 500 MG in Sodium Chloride 0.9% 50 ML IV ONE (10:00)
[2018-10-05] MEDS ORDERED: Bupivacaine 0.5% 50 ML MDV ONE (10:29)
[2018-10-05] MEDS ORDERED: Lidocaine 1% with EPINEPHrine 1:100,000 50 ML MDV ONE (10:30)
--- NOTE | 2018-10-09 13:15 | OR ---
DATE OF PROCEDURE: 10/05/2018 PREOPERATIVE DIAGNOSIS: Partially drained intraabdominal abscess. POSTOPERATIVE DIAGNOSIS: Partially drained intraabdominal abscess. PROCEDURE: Limited laparotomy with drainage of intraabdominal abscess (27195). ANESTHESIA: Local plus IV sedation. INDICATION FOR PROCEDURE: The patient presents with a partially drained intraabdominal abscess. He is draining through a trocar site which comes up to the abscess site, but does not enter it altogether, and the patient has persistent purulent drainage. CT scan obtained yesterday showing an area of abscess extending laterally along the lower aspect of the liver. Plan is to proceed with a limited laparotomy and drainage of that abscess. Potential risks including bleeding, infection, injury to underlying viscera, possible recurrence, or persistence of infection postoperatively were reviewed, and the patient wishes to proceed. DETAILS OF PROCEDURE: The patient was taken to the operating room, placed in a supine position. IV sedation was administered, after which the abdomen was prepped and draped. The previously located drain was then removed. This then allowed some local to be injected along the track of that drain, and incision was then made, carried down through the skin and subcutaneous tissue. The area of the abscess cavity was then entered below the fascia and cultures of this were obtained. The area was digitally then broken up somewhat, and the guidewire was passed laterally into the abscess cavity in a rightward direction. Over this, then a 15-Swazi round Sarath-Hoffmann drain was able to be placed. Through that, a small incision into the drain, and then fluoroscopic surveillance was migrated out to the lateral aspect of the abscess cavity. At that point, the drain was irrigated with roughly 40 mL of meropenem containing saline solution , and at that point, the drain was sutured to the skin with some 3-0 Vicryl stitch. The skin incision was then partially closed also with some 3-0 Vicryl stitch leaving the portion of the incision open where the drain came through. The patient was taken to the recovery room in satisfactory condition. There were no evident complications. Arley Jin MD /[id number]
== END 2018-10-05 13:15 | disposition home or self-care (01) ==
LOC: JP.SDS 08:18
PROVIDERS: ATTEND Surgery
DX: K65.1 Peritoneal abscess (principal); Z88.8 Allergy status to other drugs, medicaments and biological substances
CPT/HCPCS: 36415; 49020; 76000; 80053; 83735; 84100; 85027; 87070; 87075; 87077; 87205; J2185; J2250; J2704; J3010; J3490; J7042; J7050